=== PATIENT | male | born 1995 | race Caucasian/White ===

== ENCOUNTER → 2017-01-24 | Outpatient (CLI) | payer OTHER | END | disposition home or self-care (01) | LOC: PTH.S 11:13 | DX: R10.9 Unspecified abdominal pain (principal) ==

== ENCOUNTER 2017-03-01 01:52 | Emergency (ER) | payer SELFPAY ==
--- NOTE | 2017-03-05 15:36 | ER ---
ADMIT: 03/01/2017 RM/LOC: ER [facility] MR#: [id number] [facility] [address] [place] [id number] [address] [place] [address] Emergency Room Report SEX: M AGE: 21 : 1995 DATE: 03/01/2017 ADDENDUM: This is a 21-year-old male who slipped and fell off his skateboard. Mainly, he injured his chin where he cut it. His TMJs are opened and closed. He says he feels like a little fullness there. I said lot of times people will get that like a little sprain there, which he probably has as well, so he has at least a contusion to his chin. The laceration is 3 cm. We closed it with interrupted 4-0 Ethilon, which should come out in 6 days. Advised to be rechecked if he has any other problems. He was here early in the morning, so they were busy, and the night doctor could not get to him until I came in. CONDITION ON DISCHARGE: Improved. Dereck Roca MD/ avi JOB #: [id number] CC: Augustus Rosa MD, Attending Physician Laurence Newton MD, Family Physician
== END 2017-03-01 07:00 | disposition home or self-care (01) ==
LOC: ER 01:52
DX: S01.81XA Laceration without foreign body of other part of head, initial encounter (principal); S00.83XA Contusion of other part of head, initial encounter; V00.131A Fall from skateboard, initial encounter; Y93.51 Activity, roller skating (inline) and skateboarding

== ENCOUNTER → 2017-03-07 | Outpatient (CLI) | payer OTHER | END | disposition home or self-care (01) | LOC: PTH.S 12:38 | DX: Z72.51 High risk heterosexual behavior (principal) ==